=== PATIENT | female | born 1975 | race Caucasian/White ===

== ENCOUNTER → 2017-09-10 | Outpatient (CLI) | payer OTHER ==
--- NOTE | 2017-09-10 17:39 | KCIC ---
Bilateral digital screening mammograms: Reason for examination: Routine baseline screening. Interpretation was made with the benefit of CAD. The skin and nipples show no abnormalities. No abnormal axillary lymph nodes are seen. The breast parenchyma is heterogeneously dense. (Breast density: Category C.) There appears to be some focally nodular parenchyma suggested medially in the left breast on CC view possibly at the 7:00 B position. There is also some nodular architectural distortion suggested in the lateral right breast on cc view possibly at the 9:00 B position centrally. Recommend further evaluation with additional coned compression views and ultrasound. There are no other dominant masses, suspicious calcifications or architectural distortion. Impression: Nodular areas of parenchymal density seen bilaterally. Recommend further evaluation with coned compression views and ultrasound. Your patient's mammogram demonstrates that she has dense breast tissue (breast density category C or D), which could hide abnormalities, and if she has other risk factors for breast cancer that have been identified, she might benefit from supplemental screening tests that may be suggested by you as her ordering physician. Dense breast tissue, in and of itself, is a relatively common condition. Therefore, this information is not provided to cause undue concern, but rather to raise your awareness and to promote discussion with your patient regarding the presence of other risk factors, in addition to dense breast tissue. Your patient's mammography results will be sent to her. BI-RAD Category 0: Incomplete. Additional imaging is recommended. "Our facility is accredited by the [employer] Mammography [employer]." This patient's information has been entered into a reminder system for the patient to be notified with the results of her examination and a target date for the next mammogram. Electronically signed by: Masha Dodson MD (09/10/2017 5:35 PM) [place] [id number]
== END | disposition home or self-care (01) ==
LOC: KCIC MAMMO 15:47
PROVIDERS: ATTEND Nurse Practitioner Adult Health
DX: Z12.31 Encounter for screening mammogram for malignant neoplasm of breast (principal); R91.8 Other nonspecific abnormal finding of lung field
CPT/HCPCS: G0202; 77067

== ENCOUNTER → 2017-09-20 | Outpatient (CLI) | payer OTHER ==
--- NOTE | 2017-09-20 16:17 | KCIC ---
DATE: 09/20/2017 EXAM: MAMMO SARINA BILLIE TYLERAT, BREAST BILATERAL HISTORY: Suspicious screening study COMPARISON: 09/10/2017 This study was interpreted with the benefit of Computerized Aided Detection (CAD). The breast parenchyma is heterogeneously dense, which could reduce sensitivity of mammography. Breast parenchyma level C. FINDINGS: Additional 3-D views of both breasts were obtained and correlated with the screening study. No discrete mass is identified in the areas of concern described medially in the left breast and laterally in the right breast on the screening exam. The appearance on the previous 2-D images was probably due to superimposed dense fibroglandular shadows. Bilateral breast ultrasound, 09/20/2017: The lateral aspects of both breasts were carefully scanned. Normal heterogeneous fibroglandular shadows are present. No abnormality is seen on the left. A small hypoechoic nodule is seen at the 9:00 location on the right, approximately 4 cm from the nipple. It measures 5 x 6 x 7 mm. Its anterior and posterior connors are smooth and well-defined. There are low level internal echoes. There is faint posterior acoustic enhancement. This is probably a complicated cyst. No other abnormality was identified on the right. IMPRESSION: 1. Heterogeneously dense breasts without mammographic evidence of a discrete mass. 2. The targeted ultrasound exam did demonstrate a small hypoechoic nodule in the lateral right breast, most likely a complicated cyst. Sonographic follow-up beginning in 4-6 months is suggested to confirm that this is a benign finding. BI-RADS CATEGORY: 3 PROBABLY BENIGN FINDING(S)-SHORT INTERVAL FOLLOW-UP SUGGESTED RECOMMENDED FOLLOW-UP: 6M 6 MONTH FOLLOW-UP PQRS compliance statement: Patient information was entered into a reminder system with a target due date for the next mammogram. Mammography is a sensitive method for finding small breast cancers, but it does not detect them all and is not a substitute for careful clinical examination. A negative mammogram does not negate a clinically suspicious finding and should not result in delay in biopsying a clinically suspicious abnormality. "Our facility is accredited by the [employer] Mammography [employer]."
== END | disposition home or self-care (01) ==
LOC: KCIC MAMMO 14:15
PROVIDERS: ATTEND Nurse Practitioner Adult Health
DX: N63.10 Unspecified lump in the right breast, unspecified quadrant (principal)
CPT/HCPCS: 76641; G0204; G0279; 77062; 77066

== ENCOUNTER → 2020-03-15 | Outpatient (CLI) | payer OTHER ==
--- NOTE | 2020-03-15 18:13 | KCIC ---
Bilateral digital screening mammograms with 3-D tomosynthesis: Reason for examination: Routine screening. Comparison is made to previous studies dated 09/20/2017 and 09/10/2017. Bilateral mammograms in CC and oblique projections were obtained with 2-D imaging and 3-D tomosynthesis imaging on a Siemens Inspiration unit and reviewed on the workstation. Interpretation was made with the benefit of CAD. The skin and nipples show no abnormalities. No abnormal axillary lymph nodes are seen. The breast parenchyma is extremely dense. (Breast density: Category D.) There continues to be some dense asymmetry in the retroareolar position of the left breast which is stable. There are no new dominant masses, suspicious calcifications or architectural distortion. Impression: No evidence of malignancy. Recommend routine screening. Your patient's mammogram demonstrates that she has dense breast tissue (breast density category C or D), which could hide abnormalities, and if she has other risk factors for breast cancer that have been identified, she might benefit from supplemental screening tests that may be suggested by you as her ordering physician. Dense breast tissue, in and of itself, is a relatively common condition. Therefore, this information is not provided to cause undue concern, but rather to raise your awareness and to promote discussion with your patient regarding the presence of other risk factors, in addition to dense breast tissue. Your patient's mammography results will be sent to her. BI-RAD Category 2: Benign. "Our facility is accredited by the [employer] Mammography [employer]." This patient's information has been entered into a reminder system for the patient to be notified with the results of her examination and a target date for the next mammogram. Electronically signed by: Masha Dodson MD (03/15/2020 6:10 PM) [id number]
== END | disposition home or self-care (01) ==
LOC: KCIC MAMMO 10:38
PROVIDERS: ATTEND Nurse Practitioner Women's Health
DX: Z12.31 Encounter for screening mammogram for malignant neoplasm of breast (principal); N64.89 Other specified disorders of breast
CPT/HCPCS: 77063; 77067